=== PATIENT | male | born 1990 | race African-American/Black ===

== ENCOUNTER 2020-08-13 11:16 | Emergency (ER) | payer OTHER, SELFPAY ==
--- NOTE | ~2020-08-13 | CT_ITS ---
EXAMINATION: CT brain wo con INDICATION: Left facial pain COMPARISON: None TECHNIQUE: Standard unenhanced head CT. The dose-length product (DLP) was 681.00 mGy-cm. The mA was a djusted according to patient size. Iterative reconstruction technique was employed. FINDINGS: There is no intracranial hemorrhage, acute infarction, or abnormal mass lesion. The ventric les are normal. There is no abnormal mass effect or midline shift. The biswas-white matter differentiat ion is normal. The basal cisterns are patent. The orbits are normal. The paranasal sinuses, mastoids and calvarium are normal. IMPRESSION: 1. No acute intracranial abnormality. Reviewed, dictated and finalized at location A. A[employer] T[employer]ATMENT SPECIALIST
[2020-08-13 11:22] VITALS: BP 131/82; PULSE 79; RESP 20; TEMP 36.4; O2SAT 99
--- NOTE | 2020-08-13 13:01 | ED.GENADULT ---
HPI - General Adult General Chief complaint: Unspecified Stated complaint: 3-4 days sharp pains left side of head Time Seen by Provider: 08/13/20 11:58 Source: patient Mode of arrival: ambulatory Limitations: no limitations History of Present Illness HPI narrative: This is a 29 year old male that presents to the ER for left sided headaches x 3 days. Reports intermittent headaches. Reports the pain is sharp in nature. Has happened several times over the last couple of days. Reports he has also felt tingling in the left hand intermittently as well with headaches. No current headache or paresthesias. Denies fever, vision changes, vomiting or numbness. Related Data Home Medications Medication Instructions Recorded Confirmed No Home Medications 08/13/20 08/13/20 Allergies Allergy/AdvReac Type Severity Reaction Status Date / Time No Known Allergies Allergy Mild Verified 08/13/20 11:25 Review of Systems Review of Systems: Narrative: CONSTITUTIONAL: Denies fever EYES: Denies visual changes CARDIOVASCULAR: Denies chest pain GASTROINTESTINAL: Denies vomiting NEUROLOGIC: Reports headache. Denies numbness, or weakness. All systems reviewed & are unremarkable except as noted in HPI and below PMFSH Past Medical History Medical History (Updated 08/13/20 @ 14:47 by Alicia Miguel PA-C) No active medical problems Social History Social History (Updated 08/13/20 @ 14:44 by Alicia Miguel PA-C) Substance use: never Gender identity (if verbalized by the patient): Male Exam Narrative: Exam Narrative: GENERAL: Well-appearing, well-nourished, and in no acute distress. HEAD: Normocephalic, atraumatic. EYES: PERRLA and EOMI. ENT: Nares clear, no rhinorrhea or epistaxis. Mucous membranes moist. Oropharynx without tonsillar hypertrophy exudate or other lesions. Bilateral TMs pearly biswas non-bulging NECK: Supple. No adenopathy or masses. CHEST: Clear to auscultation. No respiratory distress. No wheezes rales or rhonchi HEART: Regular rate and rhythm. No murmur heard. Normal peripheral pulses. EXTREMITIES: Normal range of motion. No edema. Strength equal in bilateral upper extremities (5/5) SKIN: Warm, dry, no rash. NEURO: No focal deficits. Alert and oriented x3. Cranial nerves II through XII grossly intact PSYCH: Normal mood and affect Course Vital Signs Vital signs: Vital Signs Temperature 97.6 F 08/13/20 11:22 Pulse Rate 79 08/13/20 11:22 Respiratory Rate 20 08/13/20 11:22 Blood Pressure 131/82 08/13/20 11:22 Pulse Oximetry 99 08/13/20 11:22 Temperature 97.6 F 08/13/20 11:22 Pulse Rate 79 08/13/20 11:22 Respiratory Rate 20 08/13/20 11:22 Blood Pressure 131/82 08/13/20 11:22 Pulse Oximetry 99 08/13/20 11:22 Medical Decision Making MDM Narrative Medical decision making narrative: Patient presents to the emergency department for intermittent headaches. He is afebrile and nontoxic-appearing. CBC and metabolic panel are without acute findings. CT scan of the brain is without concerning changes. He denies any current headache or paresthesias. Patient updated on case findings. He is stable and felt appropriate for further outpatient evaluation. He is to follow-up with primary care doctor. He was given warnings to return to the ER Vital Signs Vital Signs: Vital Signs Temperature 97.6 F 08/13/20 11:22 Pulse Rate 79 08/13/20 11:22 Respiratory Rate 20 08/13/20 11:22 Blood Pressure 131/82 08/13/20 11:22 Pulse Oximetry 99 08/13/20 11:22 Temperature 97.6 F 08/13/20 11:22 Pulse Rate 79 08/13/20 11:22 Respiratory Rate 20 08/13/20 11:22 Blood Pressure 131/82 08/13/20 11:22 Pulse Oximetry 99 08/13/20 11:22 Lab Data Lab results reviewed: Yes I reviewed the patient's lab results. Result diagrams: 08/13/20 13:01 08/13/20 13:01 Labs: Lab Results 08/13/20 08/13/20 Range/Units 13:01 13:01 WBC 5.8 (4.5-
[2020-08-13 13:08] LABS: Basophils Absolute Auto 0.1 K/mm3 (0.0-0.1); Basophils Percent Auto 1.6 % (0.2-1.2); Eosinophils Absolute Auto 0.4 K/mm3 (0-0.3); Eosinophils Percent Auto 7.6 % (0-4.4); Hematocrit 44.9 % (42.0-52.0); Hemoglobin 14.8 g/dL (14.0-18.0); Immature Granulocyte Absolute 0.02 K/mm3 (0.00-0.031); Immature Granulocyte Percent A 0.3 % (0-0.5); Lymphocytes Percent Auto 34.5 % (18.3-44.2); Mean Platelet Volume 10.4 fl (7.4-10.4); Monocytes Absolute Auto 0.4 K/mm3 (0.1-0.6); Monocytes Percent Auto 6.6 % (2.6-8.5); Neutrophils Absolute Auto 2.9 K/mm3 (1.3-6.7); Neutrophils Percent Auto 49.4 % (45.5-73.1); Platelet Count Result 276 k/mm3 (150-375); Red Blood Count 5.28 M/mm3 (4.6-6.20); Red Cell Distribution Width 13.1 % (11.5-14.5); White Blood Count 5.8 K/mm3 (4.5-10.0)
[2020-08-13 13:23] LABS: Anion Gap 8 mmol/L (8-16); Blood Urea Nitrogen 11 mg/dL (9-20); Calcium 9.5 mg/dL (8.4-10.2); Carbon Dioxide 28 mmol/L (22-30); Chloride 106 mmol/L (98-107); Estimated Glomerular Filt Rate > 60; Glucose 90 mg/dL (75-110); Potassium 4.1 mmol/L (3.4-5.0); Sodium 142 mmol/L (137-145)
[2020-08-13 14:58] VITALS: BP 136/72; PULSE 88; RESP 18; O2SAT 98
== END 2020-08-13 14:59 | disposition home or self-care (01) ==
PROVIDERS: Physician Assistant; Emergency Provider Emergency Medicine
DX: R51.9 Headache, unspecified (principal)
CPT/HCPCS: 36415; 70450; 80048; 85025; 99284

== ENCOUNTER 2021-01-27 18:20 | Emergency (ER) | payer SELFPAY ==
--- NOTE | ~2021-01-27 | CT_ITS ---
EXAMINATION: CT BRAIN W/O DATE: 01/27/2021 22:14 INDICATION: Headache for 3 days TECHNIQUE: Computed tomography (CT) of the head was performed without intravenous contrast. The dose- length product was 681.00 mGy-cm. Automated exposure control and iterative reconstruction technique w ere employed. COMPARISON: No prior studies for comparison. FINDINGS: Normal brain parenchymal volume for age. Normal biswas-white differentiation. No acute intrac ranial hemorrhage, infarction, mass or mass effect. No ventriculomegaly or midline shift. Midline sagittal images demonstrate a normal corpus callosum, c raniovertebral junction and sella turcica. Basilar cisterns are patent. Paranasal sinuses and mastoids are pneumatized. No depressed skull fractures. IMPRESSION: 1. No acute intracranial abnormality. Reviewed, dictated and finalized at location A.
[2021-01-27 19:14] VITALS: BP 146/71; PULSE 79; RESP 18; TEMP 36.4; O2SAT 99
--- NOTE | 2021-01-27 20:28 | ED.HA ---
HPI - Headache General Chief Complaint: Headache Stated Complaint: headaches x 1 week, elevated blood pressure. Time Seen by Provider: 01/27/21 20:21 Source: patient and RN notes reviewed Mode of arrival: ambulatory Limitations: no limitations History of Present Illness HPI Narrative: Patient is 30 years old -[place] male presents to the ED with headache started 4 to 5 days ago, intermittent, usually last for hours when it comes, get better with sleeping, patient denies any aggravating factors. Patient describes the headache as ache at the frontal and occipital area. Patient denies any fever, chills, nausea, vomiting, chest pain, shortness of breath, back pain or neck pain. Patient also denies any visual or hearing abnormality. Patient denies smoking, IV drugs or using marijuana. Drinks occasionally. Related Data Allergies Allergy/AdvReac Type Severity Reaction Status Date / Time No Known Allergies Allergy Mild Verified 08/13/20 11:25 Review of Systems Review of Systems: Narrative: CONSTITUTIONAL: Denies fever, chills, or sweats. EYES: Denies visual changes, redness, or discharge. ENT: Denies rhinorrhea, congestion, sore throat, or otalgia. CARDIOVASCULAR: Denies chest pain, palpitations, or edema. RESPIRATORY: Denies cough or dyspnea. GASTROINTESTINAL: Denies abdominal pain, nausea, vomiting, or diarrhea. GENITOURINARY: Denies dysuria or hematuria. SKIN: Denies rash or itching. MUSCULOSKELETAL: Denies back pain, joint pain, or myalgia. NEUROLOGIC: Denies headache, numbness, or weakness. PSYCHIATRIC: Denies anxiety or depression. PMFSH Past Medical History Medical History No active medical problems Social History Social History Substance use: never Gender identity (if verbalized by the patient): Male Exam Narrative: Exam Narrative: General appearance: Well-developed, well-nourished Skin: Normal color Head: Normocephalic, nontraumatic Eyes: Clear conjunctiva ENT: Oropharynx normal, ears normal, nose normal Neck: Supple, nontender Chest and respiratory: Airway patent, no respiratory distress, no accessory muscle use Heart: Regular rate/rhythm Abdomen: Soft, nontender, no organomegaly, quiet bowel sounds Vascular: Normal peripheral pulses, normal capillary refill. Musculoskeletal: Normal range of motion, nontender back Neurologic: Alert and oriented ?3, VEHICLE ASSEMBLER is normal as tested, no gross motor deficit Course Course Emergency Course: Stable Vital Signs Vital signs: Vital Signs Temperature 36.4 C L 01/27/21 19:14 Pulse Rate 79 01/27/21 19:14 Respiratory Rate 18 01/27/21 19:14 Blood Pressure 146/71 H 01/27/21 19:14 Pulse Oximetry 99 01/27/21 19:14 Temperature 36.4 C L 01/27/21 19:14 Pulse Rate 79 01/27/21 19:14 Respiratory Rate 18 01/27/21 19:14 Blood Pressure 146/71 H 01/27/21 19:14 Pulse Oximetry 99 01/27/21 19:14 MDM - Headache MDM Narrative Medical decision making narrative: Patient presents with intermittent headache. Patient telling me that his headache secondary to elevated blood pressure. Patient never been diagnosed with high blood pressure before. Toradol IM, CT head ordered. Further plan to follow. Look at my differential diagnosis below Differential Diagnosis Differential diagnosis: Likely tension headache, subarachnoid hemorrhage and headache Imaging Data Radiologist's impression: Impressions Head CT 01/27/21 22:22 IMPRESSION: 1. No acute intracranial abnormality. Critical Care Time Critical Care Time Critical Care Time: Yes Total Critical Care Ti
[2021-01-27] MEDS: KETOROLAC (*BKC) 60 MG/2 ML VIAL IM (20:55)
--- NOTE | 2021-01-27 22:22 | PC.NURSE ---
Pt to CT scan via w/c.
[2021-01-27 23:02] VITALS: BP 132/95; PULSE 64; RESP 15; O2SAT 100
== END 2021-01-27 23:03 | disposition home or self-care (01) ==
PROVIDERS: Emergency Provider Emergency Medicine
DX: R51.9 Headache, unspecified (principal)
CPT/HCPCS: 70450; 96372; 99284; J1885

== ENCOUNTER 2022-07-27 19:25 | Emergency (ER) | payer SELFPAY ==
[2022-07-27 19:49] VITALS: BP 152/71; PULSE 89; RESP 18; TEMP 36.6; O2SAT 97
[2022-07-27 21:00] LABS: Influenza A QL RT-PCR Negative (Negative); Influenza B QL RT-PCR Negative (Negative); SARS-CoV-2 RNA PCR Negative
--- NOTE | 2022-07-27 22:30 | ED.GENADULT ---
HPI - General Adult General Chief complaint: Upper Respiratory Infection Stated complaint: dyspnea, cough sore throat bodyaches,child has flu Time Seen by Provider: 07/27/22 21:35 History of Present Illness HPI narrative: This is a 31-year-old healthy male presenting ED with flu-like symptoms for last 2 days. Patient has been having sore throat, congestion, headache body aches for the last 2 days. Several episodes of nonbloody diarrhea. He has been eating and drinking well. He denies chest pain, difficulty breathing, abdominal pain, fever/chills. Patient has a sick child at home. Related Data Allergies Allergy/AdvReac Type Severity Reaction Status Date / Time No Known Allergies Allergy Mild Verified 08/13/20 11:25 Review of Systems Review of Systems: CONSTITUTIONAL: Denies night sweats. EYES: No eye pain ENT: Denies rhinorrhea CARDIOVASCULAR: Denies palpitations RESPIRATORY: Denies hemoptysis GASTROINTESTINAL: Denies hematemesis GENITOURINARY: Denies hematuria. SKIN: Denies rash MUSCULOSKELETAL: Denies myalgia. NEUROLOGIC: Denies weakness. PSYCHIATRIC: Denies delusions PMFSH Past Medical History Medical History Hypertension No active medical problems Social History Social History Substance use: never Gender identity (if verbalized by the patient): Male Exam Narrative: APPEARANCE: No apparent distress. well-appearing Head atraumatic. EYES: PERRLA/EOMI, NOSE: Normal no drainage NECK: Supple, Trachea midline RESPIRATORY: CTAB, No increased work of breathing. CARDIOVASCULAR: S1S2 appreciated ABDOMINAL: Soft, nontender, nondistended, MUSCULOSKELETAl: No obvious deformities NEURO: Alert. Moving 4/4 extremities SKIN:: Warm, dry. Normal color PSYCHIATRIC: Normal affect Course Vital Signs Vital signs: Vital Signs Temperature 97.9 F 07/27/22 19:49 Pulse Rate 89 07/27/22 19:49 Respiratory Rate 18 07/27/22 19:49 Blood Pressure 152/71 H 07/27/22 19:49 Pulse Oximetry 97 07/27/22 19:49 Oxygen Delivery Room Air 07/27/22 19:49 Temperature 97.9 F 07/27/22 19:49 Pulse Rate 89 07/27/22 19:49 Respiratory Rate 18 07/27/22 19:49 Blood Pressure 152/71 H 07/27/22 19:49 Pulse Oximetry 97 07/27/22 19:49 Oxygen Delivery Room Air 07/27/22 19:49 Medical Decision Making MDM Narrative Medical decision making narrative: This is a well-appearing 31-year-old male presenting with viral syndrome. Vital signs are stable. Physical exam was unremarkable. Patient was tested here for flu a and COVID which were both negative. Patient's child at home was tested positive for flu so its likely the patient also has flu despite the negative test. As his condition is improving he will not be given Tamiflu. Patient will be discharged home with mod instructions take Motrin and Tylenol to stay well hydrated. Can follow up with primary care physician. Vital Signs Vital Signs: Vital Signs Temperature 97.9 F 07/27/22 19:49 Pulse Rate 89 07/27/22 19:49 Respiratory Rate 18 07/27/22 19:49 Blood Pressure 152/71 H 07/27/22 19:49 Pulse Oximetry 97 07/27/22 19:49 Oxygen Delivery Room Air 07/27/22 19:49 Temperature 97.9 F 07/27/22 19:49 Pulse Rate 89 07/27/22 19:49 Respiratory Rate 18 07/27/22 19:49 Blood Pressure 152/71 H 07/27/22 19:49 Pulse Oximetry 97 07/27/22 19:49 Oxygen Delivery Room Air 07/27/22 19:49 Lab Data Labs: Lab Results 07/27/22 Range/Units 19:57 Influenza A (RT-PCR) Negative (Negative) Influenza B (RT-PCR) Negative (Negative) SARS-CoV-2 RNA (RT-PCR) Negative Discharge Plan Discharge Clinical Impression: Acute viral syndrome Patient Disposition: Home, Self-Care Condition: Stable Instructions: Antibiotic Form, Viral Syndrome (ED) Additional Instructions: Please use Motrin Tyle
== END 2022-07-27 22:41 | disposition home or self-care (01) ==
PROVIDERS: Emergency Medicine; Emergency Provider Emergency Medicine
DX: B34.9 Viral infection, unspecified (principal); I10 Essential (primary) hypertension; Z20.822 Contact with and (suspected) exposure to COVID-19
CPT/HCPCS: 87502; 99283; C9803; U0003; U0005

== ENCOUNTER 2024-04-10 09:22 | Emergency (ER) | payer SELFPAY ==
--- NOTE | ~2024-04-10 | XR_ITS ---
EXAMINATION: XR ankle LT min 3V DATE: 04/10/2024 09:51 INDICATION: Left ankle injury and pain. TECHNIQUE: 4 views of left ankle were obtained. COMPARISON: None. FINDINGS: Bone alignment is normal. No fracture. There is mild osteoarthritis of talonavicular joint. Ankle soft tissue swelling is noted. IMPRESSION: 1. No fracture. Reviewed, dictated and finalized at location A. IMPRESSION: 1. No fracture.
--- NOTE | ~2024-04-10 | XR_ITS ---
EXAMINATION: XR foot LT min 3V DATE: 04/10/2024 09:51 INDICATION: Left foot injury. TECHNIQUE: 4 views of left foot were obtained. COMPARISON: None. FINDINGS: There is mild hallux valgus. No fracture. There is mild osteoarthritis of first metatarsoph alangeal joint. There is mild osteoarthritis of talonavicular joint. IMPRESSION: 1. Mild hallux valgus. 2. Mild polyarticular osteoarthritis. Reviewed, dictated and finalized at location A.
[2024-04-10 09:26] VITALS: BP 132/80; PULSE 87; RESP 18; TEMP 36.4; O2SAT 95
--- NOTE | 2024-04-10 11:08 | ED.LOWEXIN ---
HPI - Extremity Injury (Lower) General Chief Complaint: Extremity Injury, Lower Stated Complaint: L ankle pain Time Seen by Provider: 04/10/24 10:43 Source: patient Mode of arrival: ambulatory Limitations: no limitations History of Present Illness HPI Narrative: Enrrique is a 33-year-old male patient presenting to the ER today with complaints of left foot and ankle pain that occurred around 5:00 a.m. this morning. He reports he was going down the steps with his child in his arms and he slipped on a toy. Denies any injury to the child however he injured his left lateral ankle and foot. Is having pain with ambulation/bearing weight. No obvious deformity noted Related Data Allergies Allergy/AdvReac Type Severity Reaction Status Date / Time No Known Allergies Allergy Mild Verified 04/10/24 11:09 Review of Systems Review of Systems: Pertinent positives per HPI. Patient denies any fever, chills, rash, headache, visual changes, dizziness, cough, runny nose, sore throat, shortness of breath, chest pain, palpitations, nausea, vomiting, diarrhea, constipation, abdominal pain, or any urinary issues. [facility] Past Medical History Medical History Hypertension No active medical problems Social History Social History Substance use: never Gender identity (if verbalized by the patient): Male Comments At the time of my signature, I reviewed and agree with the nursing past medical, surgical, social, and family history. There is no relevant family history pertinent to the patient complaint. Exam Narrative: General: Well-developed, well nourished, in no apparent distress Head: Normocephalic, atraumatic. Cardio: Regular rate and rhythm, s1 and s2 normal, no murmur appreciated. Resp: Clear to auscultation bilaterally, no rhonchi, rales, wheezing or rubs. Musculoskeletal: No deformity, tender to palpation over the lateral ankle and lateral foot, grossly normal range of motion, muscle strength strong and equal, peripheral pulse strong, no edema, no cyanosis, normal gait and station Course Course Emergency Course: Portions of this record may have been created with voice recognition software. Vital Signs Vital signs: Vital Signs Temperature 36.4 C 04/10/24 09:26 Pulse Rate 87 04/10/24 09:26 Respiratory Rate 18 04/10/24 09:26 Blood Pressure 132/80 04/10/24 09:26 Pulse Oximetry 95 04/10/24 09:26 Temperature 36.4 C 04/10/24 09:26 Pulse Rate 87 04/10/24 09:26 Respiratory Rate 18 04/10/24 09:26 Blood Pressure 132/80 04/10/24 09:26 Pulse Oximetry 95 04/10/24 09:26 Vital signs reviewed MDM - Extremity Injury (Lower) MDM Narrative Medical decision making narrative: At the time of visit patient is resting comfortably on the exam table. Patient appears to be nontoxic. Diagnostics: X-ray of the left foot and ankle are negative for any sign of fracture or malalignment. Plan: Supportive measures were discussed with the patient and they voiced understanding discharge instructions and agrees to treatment plan. Return precautions reviewed Differential Diagnosis Differential diagnosis: Likely ankle sprain and strain, ankle fracture and other ( Foot fracture, foot sprain) Imaging Data Radiologist's impression: ITS Impressions Ankle X-Ray 04/10/24 10:00 IMPRESSION: 1. No fracture. Foot X-Ray 04/10/24 10:01 IMPRESSION: 1. Mild hallux valgus. 2. Mild polyarticular osteoarthritis. Discharge Plan Discharge Clinical Impression: Left ankle sprain, Sprain of left foot Patient Disposition: Home, Self-Care Condition: Stable Instructions: Antibiotic Form, Ankle Sprain (ED), Foot Sprain (ED) Additional Instructions: X-ray of the left foot and ankle are negative for any sign of fracture or malalignment. Rest, ice, elevate, and wear maddy w
[2024-04-10 11:24] VITALS: BP 130/80; PULSE 84; RESP 18; TEMP 36.8; O2SAT 100
== END 2024-04-10 11:30 | disposition home or self-care (01) ==
LOC: ANHED 11:13
PROVIDERS: Emergency Provider Nurse Practitioner Family
DX: S93.402A Sprain of unspecified ligament of left ankle, initial encounter (principal); S93.602A Unspecified sprain of left foot, initial encounter; I10 Essential (primary) hypertension; M20.12 Hallux valgus (acquired), left foot; M19.072 Primary osteoarthritis, left ankle and foot; W10.9XXA Fall (on) (from) unspecified stairs and steps, initial encounter
CPT/HCPCS: 73610; 73630; 99283

== ENCOUNTER 2025-03-03 22:33 | Emergency (ER) | payer SELFPAY ==
--- NOTE | ~2025-03-03 | XR_ITS ---
XR chest 2V Ordering provider: Ethan Garcia History: 34 years Male with . cough . Comparison: None. FINDINGS: MEDIASTINUM: The cardiac silhouette is not enlarged. LUNGS: No infiltrates, effusions or pneumothorax. OTHER: No free air under the diaphragm. IMPRESSION: No acute cardiopulmonary pathology. Reviewed, dictated and finalized at location A.
--- OUTSIDE RECORDS SUMMARY | 2025-03-03 22:35 | XMS_ITS | Clinical Summary ---
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 Gender Identity Not on file Sexual Orientation Not on file Plan of Treatment Health Maintenance Due Date Last Done Comments Hepatitis C Virus (HCV) Screening 1988 TdaP Immunization 1988 Hepatitis B Immunization (1 of 3 - 19+ 3-dose series) 12/20/2007 Influenza Immunization (#1) 2024 SARS-COV-2 Immunization ( season) 2024 Respiratory Syncytial Virus (RSV) Immunization (Adult) (1 - 1-dose 75+ series) 12/20/2063 Meningococcal Immunization (ACWY) Aged Out No longer eligible based on patient's age to complete this topic Pneumococcal Immunization Combined Aged Out No longer eligible based on patient's age to complete this topic Rotavirus Immunization Aged Out No lo nger eligible based on patient's age to complete this topic
[2025-03-03 22:36] VITALS: BP 163/100; PULSE 108; RESP 18; TEMP 37.8; O2SAT 97
[2025-03-03 23:24] LABS: Influenza A QL RT-PCR Negative (Negative); Influenza B QL RT-PCR Negative (Negative); RSV RNA, RT-PCR Negative (Negative); SARS-CoV-2 RNA PCR Negative (Negative)
[2025-03-04 00:22] VITALS: BP 141/79; PULSE 103; RESP 20; TEMP 37.4; O2SAT 99
--- NOTE | 2025-03-04 00:23 | PC.NURSE ---
Pt presents to ED c/o SOB and L side abdominal pain that worsens when coughing and/or sneezing. Pt denies fever, oral temp when roomed 99.3, oxygen saturation 99% RA.
--- OUTSIDE RECORDS SUMMARY | 2025-03-04 00:30 | XMS_ITS | Clinical Summary ---
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
--- NOTE | 2025-03-04 02:12 | ED_ITS ---
HPI - URI/Sore Throat General Chief Complaint: Upper Respiratory Infection Stated Complaint: Sneezing/coughing-something popped in L side Time Seen by Provider: 03/04/25 00:06 History of Present Illness HPI Narrative: Patient is a 34-year-old male who presents to the ER with left musculoskeletal abdominal pain aggravated by recent cough. He reports he started developing an upper respiratory infection approximately 2 days ago. Patient reports at one point he coughed so hard he felt something ?pop in his right lower chest/abdomen. He endorses sudden musculoskeletal pain all across his left upper and left lower abdominal quadrants that does not radiate to his left flank or down towards his pelvis. Patient the pain continues to be aggravated every time he cough or with movement. He denies any urinary symptoms, nausea and vomiting, constipation, diarrhea, or recent fevers. Patient reports his only medical history is high blood pressure for which he is not currently medicated. Related Data Allergies Allergy/AdvReac Type Severity Reaction Status Date / Time No Known Allergies Allergy Mild Verified 03/03/25 22:34 Review of Systems Review of Systems: All systems reviewed & are unremarkable except as noted in HPI and below PMFSH Past Medical History Medical History Hypertension No active medical problems Social History Social History Substance use: never Gender identity (if verbalized by the patient): Male Exam Narrative: GENERAL: Well appearing, well-nourished, non-toxic, in no acute distress. HEAD: Normocephalic, atraumatic. NECK: Supple. No adenopathy, no masses. RESPIRATORY: Airway patent, respirations nonlabored. Clear to auscultation bilaterally, no rales, rhonchi, wheezing. + congestion CARDIOVASCULAR: Regular rate and rhythm without murmurs, rubs, or gallops. Peripheral pulses 2+ and equal bilaterally. -CVA tenderness ABDOMINAL: Soft, tender with palpation to right and left side of abdomen, nondistended, no hepatosplenomegaly. Normoactive BS. MUSCULOSKELETAL: Moves all extremities. Strength/ROM intact without gross deformities. SKIN: Warm, dry, normal color. No rashes. NEURO: A&O X3. Speech clear. Cranial nerves II-XII intact. No ataxic movements. PSYCHIATRIC: Appropriate mood and affect. Normal interaction. Course Vital Signs Vital signs: Vital Signs Temperature 37.8 C H 03/03/25 22:36 Pulse Rate 108 H 03/03/25 22:36 Respiratory Rate 18 03/03/25 22:36 Blood Pressure 163/100 H 03/03/25 22:36 Pulse Oximetry 97 03/03/25 22:36 Oxygen Delivery Room Air 03/03/25 22:36 Temperature 37.4 C 03/04/25 00:22 Pulse Rate 103 H 03/04/25 00:22 Respiratory Rate 20 03/04/25 00:22 Blood Pressure 141/79 H 03/04/25 00:22 Pulse Oximetry 99 03/04/25 00:22 Oxygen Delivery Room Air 03/03/25 22:36 MDM - URI/Sore Throat MDM Narrative Medical decision making narrative: Patient is a 34-year-old male who presents to the ER with left musculoskeletal abdominal pain aggravated by recent cough. He reports he started developing an upper respiratory infection approximately 2 days ago. Patient reports at one point he coughed so hard he felt something ?pop in his right lower chest/abdomen. He endorses sudden musculoskeletal pain all across his left upper and left lower abdominal quadrants that does not radiate to his left flank or down towards his pelvis. Patient the pain continues to be aggra vated every time he cough or with movement. He denies any urinary symptoms, nausea and vomiting, constipation, diarrhea, or recent fevers. Patient reports his only medical history is high blood pressure for which he is not currently medicated. Labs Ordered: COVID/flu/RSV swab Imaging Ordered: Chest x-ray Medications Ordered: Tylenol 1 g p.o., Toradol 60 mg IM Results: Pt's chest x-ray indicates MEDIASTINUM: The cardiac silhouette is not enlarged. LUNGS: No infiltrates, effusions or pneumothorax. OTHER: No free air under the diaphragm. Diagnosis: costochondritis, upper respiratory infection Patient Education/Shared MDM: Results of lab work and imaging shared with patient. He is in agreement with plan for anti-inflammatory and Tylenol administration here in the ER. Patient strongly advised to maintain hydration status upon discharge and follow-up with his PCP as soon as possible. He will be discharged home with a prescription for promethazine DM, ibuprofen 800mg, Claritin. Strict return precautions provided. Patient verbalized understanding and is in agreement with plan. Vital signs stable at time of discharge. All questions answered. Differential Diagnosis Differential diagnosis: Likely upper respiratory infection, viral infection, bronchitis and other (Costochondritis, rib fracture) Lab Data Attestation: I reviewed the patient's lab results. Labs: Lab Results 03/03/25 Range/Units 22:43 Influenza A (RT-PCR) Negative (Negative) Influenza B (RT-PCR) Negative (Negative) RSV (RT-PCR) Negative (Negative) SARS-CoV-2 RNA (RT-PCR) Negative (Negative) Imaging Data Attestation: I personally reviewed and interpreted this imaging study as follows: Radiologist's impression: Impressions Chest X-Ray 03/03/25 23:55 IMPRESSION: No acute cardiopulmonary pathology. Discharge Plan Discharge Clinical Impression: Acute costochondritis, Upper respiratory infection, Viral infection, Hype rtension Patient Disposition: Home Condition: Stable Instructions: Antibiotic Form, Costochondritis (ED), Upper Respiratory Infection (ED) Additional Instructions: Please return to the ER with any worsening symptoms. Follow-up with primary care provider as soon as possible. Take all medications as prescribed. Your blood pressure readings were elevated today. Please follow-up with your primary care provider about restarting blood pressure medication. If you begin experiencing severe abdominal pain, blood in your urine, or uncontrolled nausea & vomiting, please return to the ER. Patient Language: German Prescriptions: New ibuprofen 800 mg tablet 800 mg PO TID PRN (Reason: pain) Qty: 14 0RF promethazine-DM 6.25-15 mg/5 mL syrup 5 ml PO Q4-6H PRN (Reason: cough) Qty: 473 0RF loratadine [Claritin] 10 mg tablet 10 mg PO DAILY Qty: 30 0RF No Action hydroxyzine pamoate [Vistaril] 50 mg capsule 50 mg PO QID PRN (Reason: headache) Qty: 40 0RF Follow-up/Referrals: Jose Martin MD [Physician] - (primary care provider) UNKNOWN,DOCTOR [Primary Care Provider] - Stand Alone Forms: Work/School Release IP Time of Disposition: 02:24
[2025-03-04] MEDS: ACETAMINOPHEN 500 MG TABLET 1000 MG PO (02:44)
[2025-03-04] MEDS: KETOROLAC (*BKC) 60 MG/2 ML VIAL IM (02:45)
[2025-03-04 02:52] VITALS: BP 140/81; PULSE 100; RESP 16; TEMP 36.6; O2SAT 96
== END 2025-03-04 02:56 | disposition home or self-care (01) ==
PROVIDERS: Student in an Organized Health Care Education/Training Program; Emergency Provider Registered Nurse
DX: M94.0 Chondrocostal junction syndrome [Tietze] (principal); J06.9 Acute upper respiratory infection, unspecified; Z20.822 Contact with and (suspected) exposure to COVID-19; I10 Essential (primary) hypertension
CPT/HCPCS: 71046; 87637; 96372; 99283; A9270; J1885